=== PATIENT | male | born 1960 | race Hispanic/Latino ===

== ENCOUNTER 2018-07-28 11:06 | Emergency (ER) | payer MEDICARE ==
[2018-07-28 11:17] VITALS: BMI 22.9
[2018-07-28 12:16] LABS: BASO # 0.03 K/mm3 (0.0-2.0); BASO % 0.5 % (0.0-3.0); EOS # 0.1 (0.0-0.7); EOS % 1.3 % (1.5-5.0); GRAN # 3.65 (1.4-6.5); GRAN % 60.6 % (50.0-68.0); HEMOGLOBIN 16.7 g/dL (14.0-18.0); LYMPH # 1.7 (1.2-3.4); LYMPH % 27.5 % (22.0-35.0); MEAN CELL VOLUME 96.4 fl (80.0-105.0); MEAN CORPUSCULAR HEMOGLOBIN 33.4 pg (25.0-35.0); MEAN CORPUSCULAR HGB CONC 34.6 g/dl (31.0-37.0); MEAN PLATELET VOLUME 9.5 fl (7.0-11.0); MONO # 0.6 (0.1-0.6); MONO % 10.1 % (1.0-6.0); RED CELL DISTRIBUTION WIDTH 13.1 % (11.5-14.5)
[2018-07-28 12:25] LABS: ALB/GLOB RATIO 1.3 (1.1-1.8); ALBUMIN 4.4 g/dL (3.0-4.8); ALT/SGPT 21 U/L (7-56); AST/SGOT 29 U/L (17-59); BLOOD UREA NITROGEN 12 mg/dL (7-21); CALCIUM 9.6 mg/dL (8.4-10.5); GFR NON-AFRICAN AMERICAN > 60
[2018-07-28 12:35] LABS: TROPONIN I < 0.01 ng/mL
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
[2018-07-28] MEDS ORDERED: Morphine 4 mg/ml ISec IVP STA (13:16)
[2018-07-28 13:53] VITALS: RESP 18
--- NOTE | 2018-07-28 13:54 | CT ---
Date of service: 07/28/2018 PROCEDURE: CT Cervical Spine without contrast HISTORY: neck pain COMPARISON: None available. TECHNIQUE: Axial computed tomography images were obtained of the cervical spine without the use of intravenous contrast. Coronal and sagittal reformatted images were created and reviewed. Radiation dose: Total exam DLP = 641 mGy-cm. This CT exam was performed using one or more of the following dose reduction techniques: Automated exposure control, adjustment of the mA and/or kV according to patient size, and/or use of iterative reconstruction technique. FINDINGS: VERTEBRAE: No fracture. Normal alignment. No destructive bony lesion. DISCS/SPINAL CANAL/NEURAL FORAMINA: No significant central canal or neural foraminal stenosis. There is foraminal stenosis on the left at C4-5. There is disc degeneration with small anterior osteophytes at C5-6 and C6-7 PARASPINAL SOFT TISSUES: Unremarkable. OTHER FINDINGS: None. IMPRESSION: Mild degenerative changes. No central stenosis
--- NOTE | 2018-07-28 13:56 | RAD ---
Date of service: 07/28/2018 HISTORY: routine study COMPARISON: No prior. FINDINGS: LUNGS: No active pulmonary disease. PLEURA: No significant pleural effusion identified, no pneumothorax apparent. CARDIOVASCULAR: Normal. OSSEOUS STRUCTURES: No significant abnormalities. VISUALIZED UPPER ABDOMEN: Normal. OTHER FINDINGS: None. IMPRESSION: No active disease.
--- NOTE | 2018-07-28 13:56 | RAD ---
Date of service: 07/28/2018 PROCEDURE: Radiographs of the Left Shoulder HISTORY: shoulder pain COMPARISON: No prior. FINDINGS: BONES: Normal. No fracture. JOINTS: Normal. Glenohumeral and acromioclavicular joints preserved. No osteoarthritis. SOFT TISSUES: Normal. OTHER FINDINGS: None. IMPRESSION: Normal radiographs of the left shoulder.
[2018-07-28 15:34] VITALS: BP 150/69; PULSE 78; TEMP 98; O2SAT 97
--- NOTE | 2018-07-28 17:51 | CARD ---
APPROVED REPORT Date of service: 07/28/2018 EKG Measurement Heart [id number] <Conclusion> Poor data quality, interpretation may be adversely affected Normal sinus rhythm Right bundle branch block Abnormal ECG
== END 2018-07-28 14:40 | disposition home or self-care (01) ==
LOC: ED 11:06
DX: S43.402A Unspecified sprain of left shoulder joint, initial encounter (principal); X58.XXXA Exposure to other specified factors, initial encounter; Y92.9 Unspecified place or not applicable; I10 Essential (primary) hypertension; E78.5 Hyperlipidemia, unspecified; F17.210 Nicotine dependence, cigarettes, uncomplicated
CPT/HCPCS: 71045; 72125; 73030; 80053; 84484; 85025; 93005; 96374; 96375; 99284; J1885; J2270

== ENCOUNTER 2019-01-07 06:41 | Day surgery (SDC) | payer MEDICARE ==
[2018-12-29 08:01] VITALS: BMI 23.7
[2019-01-07] MEDS ORDERED: Iohexol 240 (50 ml) ONE (07:14)
[2019-01-07] MEDS ORDERED: Sodium Chloride 0.9% 10 ML IV ONE (07:14)
[2019-01-07] MEDS ORDERED: Propofol 10 mg/ml Inj (20 ML) ONE (07:45)
[2019-01-07] MEDS ORDERED: Midazolam 2 MG/2 ML VIAL ONE (07:45)
[2019-01-07] MEDS ORDERED: Lidocaine 1% Inj (20ml) ONE (07:46)
[2019-01-07] MEDS ORDERED: Triamcinolone Acetonide 40 mg/mL Inj ONE (07:55)
[2019-01-07] MEDS ORDERED: Bupivacaine 0.5% 50 ML IJ ONE (08:01)
[2019-01-07] MEDS ORDERED: Naloxone 0.4 mg/ml Inj (Adult) ONE (08:20)
[2019-01-07] MEDS ORDERED: HYDROmorphone 0.5 mg/0.5 ml ISec IVP PRN (08:33)
--- NOTE | 2019-01-07 08:33 | PCM.SURG1 ---
Surgeon's Initial Post Op Note - Surgeon's Notes Surgeon: Silas Brooks MD Director New Product: Kate Esposito PA-C Type of Anesthesia: General Endo Pre-Operative Diagnosis: right hip osteoarthritis Operative Findings: see full note Post-Operative Diagnosis: same Operation Performed: cortisone injection to right hip under fluoroscopy Specimen/Specimens Removed: none Estimated Blood Loss: EBL {In ML}: 0 Blood Products Given: N/A Drains Used: No Drains Post-Op Condition: Good Date of Surgery/Procedure: 01/07/19 Time of Surgery/Procedure: 08:33
[2019-01-07] MEDS ORDERED: Lactated Ringer's 1,000 ML IV SCH (08:45)
[2019-01-07 09:21] VITALS: RESP 18; TEMP 97.6
[2019-01-07 09:36] VITALS: BP 127/80; PULSE 69; O2SAT 96
--- NOTE | 2019-01-07 10:28 | RAD ---
Date of service: 01/07/2019 PROCEDURE: Fluoroscopy up to 1 hr HISTORY: RT HIP INJECTION COMPARISON: TECHNIQUE: 43.2 sec of fluoro time. 6.66 mGy cumulative dose. Two images were submitted FINDINGS: The study shows a needle along the superior edge of the right femoral head with contrast in the hip joint. IMPRESSION: As above
--- NOTE | 2019-01-07 16:49 | OP ---
PROCEDURE DATE: 01/07/2019 PREOPERATIVE DIAGNOSIS: Right hip pain. POSTOPERATIVE DIAGNOSIS: Right hip pain. PROCEDURE: Right hip injection with Kenalog. TYPE OF ANESTHESIA: Sedation. COMPLICATIONS: None. ESTIMATED BLOOD LOSS: Zero. INDICATION FOR PROCEDURE: This is a 58-year-old gentleman who presented with complaints of chronic right groin pain. Clinical examination was consistent with some pain with weightbearing and pain with range of motion of the hip. X-ray examination was consistent with some early degenerative changes of the right hip after a period of failed nonsurgical management. Recommendations were for a right hip injection. The risks, benefits, and alternatives of the procedure were discussed with the patient and informed consent was obtained. DESCRIPTION OF PROCEDURE: After the surgical site was signed and verified in the preoperative holding area, the patient was taken to the operating room and placed supine on the operating room table. After the administration of sedation, the right hip area was prepped sterilely in the usual sterile fashion. Using C-arm image intensifier, a 20-gauge spinal needle was inserted into the right hip through a lateral approach. Confirmation that the needle was in the hip capsule was confirmed by injecting 2 mL of saline with Omnipaque, which confirmed that the needle was in the hip joint. Once this was done, the fluid was then aspirated out and the hip was injected with a total of 40 mg of Kenalog. The needle was removed. The patient tolerated the procedure well and was taken to the recovery room in stable condition. Paul Brooks MD
--- NOTE | 2019-01-07 22:28 | CARD ---
APPROVED REPORT Date of service: 01/07/2019 EKG Measurement Heart [id number] <Conclusion> Normal sinus rhythm Right bundle branch block Abnormal ECG
== END 2019-01-07 17:10 | disposition home or self-care (01) ==
LOC: SDS 06:41
PROVIDERS: ATTEND Orthopaedic Surgery
DX: M16.11 Unilateral primary osteoarthritis, right hip (principal); I10 Essential (primary) hypertension; I25.10 Atherosclerotic heart disease of native coronary artery without angina pectoris
CPT/HCPCS: 20610; 93005; J1170; J2250; J2310; J2405; J2704; J2765; J3010; J3301; J7120 ×2; Q9966